=== PATIENT | male | born 1980 | race Caucasian/White ===

== ENCOUNTER 2017-02-13 13:02 | Emergency (ER) | payer OTHER ==
[~2017-02-13] VITALS: Ht 188 cm; Wt 109.0 kg
[~2017-02-13 13:02] MED LIST: IBUP-238 PO; LORTA5 PO; METH500T3 PO; Z.0.NO CURRENT MEDS
[2017-02-13 13:05] VITALS: BP 136/92; PULSE 79; RESP 24; O2SAT 97
[2017-02-13 13:23] VITALS: BP 116/62; PULSE 79; RESP 22; TEMP 98.3; O2SAT 100
[2017-02-13] MEDS ORDERED: SODIUM CHLOR 0.9% 1000 ML INJ 1,000 ML IV SCH (13:29)
[2017-02-13] MEDS ORDERED: KETOROLAC TROMETHAMINE 30 MG/ML (IVP) VIAL IVP ONE (13:30)
[2017-02-13] MEDS ORDERED: MORPHINE SULFATE 8 MG/ML INJ IV PUSH ONE (13:30)
[2017-02-13] MEDS ORDERED: ONDANSETRON HCL 4 MG/2 ML VIAL IVP ONE (13:30)
--- NOTE | 2017-02-13 13:35 | PD ---
HPI Chief Complaint: Abdominal Pain Time Seen by Provider: 13:25 Travel History International Travel<30 days: No Contact w/Intl Traveler<30days: No Traveled to known affect area: No History of Present Illness HPI 37-year-old male presents for evaluation of abdominal, testicle pain. Symptoms started somewhat abruptly today at 11:30 AM. He describes it as a sharp pain in left lower quadrant of the abdomen that radiates into the left scrotum. He endorses some paresthesias in his left thigh as well as some nausea. He has had some watery stools over the past few days as well. Denies any flank pain, fevers or chills, vomiting, hematuria, recent antibiotic use, history of diverticulosis, kidney stone. No history of abdominal surgery. No other complaints. PFSH Past Medical History Medical History: Denies Significant Hx Diminished Hearing: No Tetanus Vaccination: < 5 Years Influenza Vaccination: No Past Surgical History Surgical History: No Previous Surgery Social History Alcohol Use: No Tobacco Use: No Substance Use: No Allergies-Medications (Allergen,Severity, Reaction): Coded Allergies: No Known Allergies (Verified , 02/13/17) Reported Meds & Prescriptions Reported Meds & Active Scripts Active Tylenol-Codeine #3 (Acetaminophen-Codeine) 300-30 mg Tab 1-2 Tab PO Q6H PRN Zofran (Ondansetron HCl) 4 Mg Tab 4 Mg PO Q6HR PRN Ketorolac (Ketorolac Tromethamine) 10 Mg Tab 10 Mg PO TID PRN Flomax (Tamsulosin HCl) 0.4 Mg Cap 0.4 Mg PO HS 5 Days Review of Systems Except as stated in HPI: all other systems reviewed are Neg Physical Exam Narrative GENERAL: This is a well-developed well-nourished male who appears acutely in pain. He is moaning. SKIN: Warm and dry. There is no rash, no bruising or soft tissue swelling. HEAD: Atraumatic. Normocephalic. EYES: Pupils equal and round. No scleral icterus. No injection or drainage. ENT: No nasal bleeding or discharge. Mucous membranes pink and moist. NECK: Trachea midline. No JVD. CARDIOVASCULAR: Regular rate and rhythm. No murmur appreciated. RESPIRATORY: No accessory muscle use. Clear to auscultation. Breath sounds equal bilaterally. GASTROINTESTINAL: Abdomen soft, tender to palpation left lower quadrant without guarding. : Descended testicles. No tenderness to palpation to the scrotum or testicles. No palpable inguinal hernia. Cremasteric reflex examination somewhat limited secondary to pain. MUSCULOSKELETAL: No obvious deformities. No clubbing. No cyanosis. No edema. NEUROLOGICAL: Awake and alert. No obvious cranial nerve deficits. Motor grossly within normal limits. Normal speech. Data Data Last Documented VS Vital Signs Date Time Temp Pulse Resp B/P Pulse Ox O2 Delivery O2 Flow Rate FiO2 02/13/17 13:23 98.3 79 22 116/62 100 Room Air Orders Complete Blood Count With Diff (02/13/17 13:29) Comprehensive Metabolic Panel (02/13/17 13:29) Lipase (02/13/17 13:29) Urinalysis - C+S If Indicated (02/13/17 13:29) Ct Abd/Pel W Iv Contrast(Rout) (02/13/17 13:29) Iv Access Insert/Monitor (02/13/17 13:29) Ondansetron Inj (Zofran Inj) (02/13/17 13:30) Sodium Chlor 0.9% 1000 Ml Inj (Ns 1000 M (02/13/17 13:29) Ketorolac Inj (Toradol Inj) (02/13/17 13:30) Morphine Inj (Morphine Inj) (02/13/17 13:30) Us Testicles W Doppler (02/13/17 13:29) Iohexol 350 Inj (Omnipaque 350 Inj) (02/13/17 14:40) Labs Laboratory Tests Test 02/13/17 02/13/17 13:58 15:10 White Blood Count 14.9 TH/MM3 Red Blood Count 5.68 MIL/MM3 Hemoglobin 16.3 GM/DL Hematocrit 48.1 % Mean Corpuscular Volume 84.7 FL Mean Corpuscular Hemoglobin 28.7 PG Mean Corpuscular Hemoglobin 33.9 % Concent Red Cell Distribution Width 13.3 % Platelet Count 218 TH/MM3 Mean Platelet Volume 8.2 FL Neutrophils (%) (Auto) 83.6 % Lymphocytes (%) (Auto) 10.0 % Monocytes (%) (Auto) 6.0 % Eosinophils (%) (Auto) 0.2 % Basophils (%) (Auto) 0.2 % Neutrophils # (Auto) 12.5 TH/MM3 Lymphocytes # (Auto) 1.5 TH/MM3 Monocytes # (Auto) 0.9 TH/MM3 Eosinophils # (Auto) 0.0 TH/MM3 Basophils # (Auto) 0.0 TH/MM3 CBC Comment DIFF FINAL Differential Comment Sodium Level 137 MEQ/L Potassium Level 3.5 MEQ/L Chloride Level 101 MEQ/L Carbon Dioxide Level 26.4 MEQ/L Anion Gap 10 MEQ/L Blood Urea Nitrogen 13 MG/DL Creatinine 1.28 MG/DL Estimat Glomerular Filtration 64 ML/MIN Rate Random Glucose 102 MG/DL Calcium Level 9.7 MG/DL Total Bilirubin 0.7 MG/DL Aspartate Amino Transf 17 U/L (AST/SGOT) Alanine Aminotransferase 38 U/L (ALT/SGPT) Alkaline Phosphatase 65 U/L Total Protein 7.8 GM/DL Albumin 4.2 GM/DL Lipase 105 U/L Urine Color YELLOW Urine Turbidity CLEAR Urine pH 8.5 Urine Specific [place] 1.034 Urine Protein TRACE mg/dL Urine Glucose (UA) NEG mg/dL Urine Ketones TRACE mg/dL Urine Occult Blood SMALL Urine Nitrite NEG Urine Bilirubin NEG Urine Urobilinogen 2.0 MG/DL Urine Leukocyte Esterase NEG Urine RBC 42 /hpf Urine WBC 1 /hpf Microscopic Urinalysis Comment CULT NOT INDICATED MDM Medical Decision Making Medical Screen Exam Complete: Yes Emergency Medical Condition: Yes Medical Record Reviewed: Yes Interpretation(s) CONCLUSION: 1. The examination demonstrates a 3 mm stone in the mid aspect of the left ureter. There are mild post obstructive changes around the left kidney. CBC WBC 14.9 CMP unremarkable Ultrasound scrotum CONCLUSION: 1. Small left-sided hydrocele. 2. Otherwise, unremarkable testicular ultrasound examination. Differential Diagnosis Testicular torsion, ureteral stone, hydronephrosis, diverticulitis, atypical appendicitis Narrative Course 37-year-old male with abrupt left lower quadrant/testicle pain which started today at 11:30 AM. Plan is for basic lab work, CT of the abdomen and pelvis, ultrasound of the scrotum. He will be given IV fluids, morphine, Toradol, Zofran. CT the abdomen and pelvis reveals a 3 mm stone in the mid aspect of the left ureter. The patient reports resolution of his pain after the administration of morphine and Zofran. He had a brief episode of hypoxia shortly after receiving morphine. He was placed on nasal cannula and pulse oximetry for the remainder of his stay. The patient is stable for discharge. Discussed signs and symptoms that would warrant return to the emergency room. Diagnosis Primary Impression: Left ureteral stone Referrals: Carlton Tamayo MD Additional Instructions: Follow-up with a urologist such as Dr. Tamayo in the next 3-5 days. Urinate into a strainer. Stay hydrated and well-nourished. Medication as needed. Do not drive or drink alcohol when taking Tylenol with Codeine. If you develop acutely worsening pain, fevers, intractable vomiting, return to the emergency room. Med/Other Pt SpecificInfo: Prescription(s) given Scripts Acetaminophen-Codeine (Tylenol-Codeine #3)300-30 mg Tab1-2 Tab PO Q6H PRN (PAIN ) #20 TAB Ref 0 Prov:Isaac Olson MD 02/13/17 Ondansetron (Zofran)4 Mg Tab4 Mg PO Q6HR PRN (NAUSEA OR VOMITING) #20 TAB Ref 0 Prov:Isaac Olson MD 02/13/17 Ketorolac 10 Mg Tab10 Mg PO TID PRN (PAIN) #15 TAB Ref 0 Prov:Isaac Olson MD 02/13/17 Tamsulosin (Flomax)0.4 Mg Cap0.4 Mg PO HS 5 Days Ref 0 Prov:Isaac Olson MD 02/13/17 Disposition: 01 DISCHARGE HOME Condition: Stable Eddie Leroy Feb 13, 2017 13:35
[2017-02-13 14:17] LABS: AUTOMATED NEUTROPHIL # 12.5 TH/MM3 (1.8-7.7); BASOPHIL % 0.2 % (0.0-2.0); EOSINOPHIL % 0.2 % (0.0-4.0); HEMATOCRIT 48.1 % (39.0-51.0); HEMO FLAGS DIFF FINAL; LYMPHOCYTE # 1.5 TH/MM3 (1.0-4.8); MEAN CELL VOLUME 84.7 FL (80.0-100.0); MEAN CORPUSCULAR HEMOGLOBIN 28.7 PG (27.0-34.0); MEAN CORPUSCULAR HGB CONC 33.9 % (32.0-36.0); NEUT % 83.6 % (16.0-70.0); PLATELET COUNT 218 TH/MM3 (150-450); RED BLOOD COUNT 5.68 MIL/MM3 (4.50-5.90); RED CELL DISTRIBUTION WIDTH 13.3 % (11.6-17.2); WHITE BLOOD COUNT 14.9 TH/MM3 (4.0-11.0)
[2017-02-13 14:38] LABS: ALT (GPT) 38 U/L (12-78); ANION GAP 10 MEQ/L (5-15); AST (GOT) 17 U/L (15-37); BICARBONATE 26.4 MEQ/L (21.0-32.0); CHLORIDE 101 MEQ/L (98-107); GLOMERULAR FILTRATION RATE 64 ML/MIN (>89); POTASSIUM 3.5 MEQ/L (3.5-5.1); SODIUM (NA) 137 MEQ/L (136-145)
[2017-02-13] MEDS ORDERED: IOHEXOL 350 MG/ML 10 ML VIAL (for RAD DIAG) IV ONE (14:40)
[2017-02-13 14:45] LABS: ALKALINE PHOSPHATASE 65 U/L (45-117); BLOOD UREA NITROGEN 13 MG/DL (7-18); TOTAL BILIRUBIN ADULT 0.7 MG/DL (0.2-1.0)
--- NOTE | 2017-02-13 14:59 | RADRPT ---
EXAM DATE/TIME: 02/13/2017 14:23 [facility] COMPARISON: No previous studies available for comparison. INDICATIONS : Left lower abdomen pain today. IV CONTRAST: 95 cc Omnipaque 350 (iohexol) IV ORAL CONTRAST: No oral contrast ingested. RADIATION DOSE: 21.87 CTDIvol (mGy) MEDICAL HISTORY : None SURGICAL HISTORY : None. ENCOUNTER: Initial ACUITY: 1 day PAIN SCALE: 7/10 LOCATION: Left lower quadrant TECHNIQUE: Volumetric scanning of the abdomen and pelvis was performed. Using automated exposure control and ad justment of the mA and/or kV according to patient size, radiation dose was kept as low as reasonably achievable to obtain optimal diagnostic quality images. FINDINGS: Right kidney/ureter: The right kidney is normal size. No stones are seen. The ureters follow throughout its course the marie dder and is unremarkable in appearance. Left kidney/ureter: There are mild post obstructive changes. The left ureter is dilated. There is a 3 mm stone in the mid aspect of the left ureter. Distally the ureter returns to normal caliber. Bladder: The bladder is normal in appearance. No stones are seen. CT source data: The limited portion of the lung base visualized is clear. The appearance of the liver, spleen, pancre as and adrenal glands is within normal limits. The visualized loops of small large bowel are unremark able. The abdominal aorta is normal in caliber. No free air or free fluid is seen. No retroperitoneal adenopathy is seen. There is no free fluid within the pelvis. CONCLUSION: 1. The examination demonstrates a 3 mm stone in the mid aspect of the left ureter. There are mild pos t obstructive changes around the left kidney. Chintan Lee MD on February 13, 2017 at 14:54 Board Certified Radiologist. This report was verified electronically.
[2017-02-13] MEDS ORDERED: TYLETAB34 PO (15:10)
[2017-02-13] MEDS ORDERED: TAMS5CAP PO (15:10)
[2017-02-13] MEDS ORDERED: KETO10 PO (15:10)
[2017-02-13] MEDS ORDERED: ZOFR4TAB PO (15:10)
--- NOTE | 2017-02-13 15:14 | RADRPT ---
EXAM DATE/TIME: 02/13/2017 13:48 [facility] COMPARISON: No previous studies available for comparison. INDICATIONS : Testicular pain. MEDICAL HISTORY : Testicular pain. SURGICAL HISTORY : None. ENCOUNTER: Initial ACUITY: 1 day PAIN SCORE: 10/10 LOCATION: Bilateral scrotum. MEASUREMENTS: RIGHT TESTICLE: 4.8 x 3.1 x 2.4cm LEFT TESTICLE: 4.5 x 3.5 x 2.1cm FINDINGS: RIGHT TESTICLE: Homogeneous echotexture without intra or extratesticular mass. Blood flow is symmetric and within no rmal limits. No hydrocele or varicocele. Epididymis is within normal limits. LEFT TESTICLE: Homogeneous echotexture without intra or extratesticular mass. Blood flow is symmetric and within no rmal limits. There is a small hydrocele. No varicocele. Epididymis is within normal limits. SCROTUM: Within normal limits. CONCLUSION: 1. Small left-sided hydrocele. 2. Otherwise, unremarkable testicular ultrasound examination. Parag Cooper MD on February 13, 2017 at 15:10 Board Certified Radiologist. This report was verified electronically.
[2017-02-13 15:31] LABS: BLOOD, URINE SMALL (NEG); COMMENT (UR) CULT NOT INDICATED; CULTURE IF INDICATED CULT NOT INDICATED; GLUCOSE,URINE NEG (NEG); KETONE, URINE TRACE mg/dL (NEG); NITRITE,URINE NEG (NEG); PH, URINE 8.5 (5.0-8.5); URINE COLOR YELLOW (YELLW/STRAW)
== END 2017-02-13 16:26 | disposition home or self-care (01) ==
LOC: NEPD 13:02
DX: N20.1 Calculus of ureter (principal); N43.3 Hydrocele, unspecified
CPT/HCPCS: 74177; 76870; 80053; 81001; 83690; 85025; 93975; 96361; 96374; 96375; 99285; J1885; J2270; J2405; J7030; Q9967